=== PATIENT | male | born 1940 | race Caucasian/White ===

== ENCOUNTER 2017-04-21 20:35 | Observation (INO) | payer MEDICARE, OTHER ==
[2017-04-21] MEDS ORDERED: Albuterol/Ipratropium 3.0-0.5 MG/3 ML Neb Soln NEB STA (20:54)
[2017-04-21] MEDS ORDERED: methylPREDNISolone Sodium Succinate 125 MG/2 ML SDV IVPUSH STA (20:54)
--- NOTE | 2017-04-21 21:21 | EDM.PDOC ---
ED HPI GENERAL MEDICAL PROBLEM - General Chief Complaint: Respiratory Problem Stated Complaint: SHORT OF BREATH Time Seen by Provider: 04/21/17 20:35 Source of Information: Reports: Patient, Family History Limitations: Reports: Altered Mental Status, Physical Impairment - History of Present Illness INITIAL COMMENTS - FREE TEXT/NARRATIVE: 76 y.o.w.m. with COPD, long time smoker, came to the ed due to worsening of SOB , poor historian PE: weak appearing 76 y.o.w.m with SOB Imaging: CHF, COPD pneumonia Labs: Impression: CHF. Pneumonia, COPD exacerbation Onset: Unknown/Unsure Onset Date: 04/18/17 Onset Time: 05:00 Duration: Day(s):, Week(s):, Getting Worse, Intermittent Location: Reports: Chest Quality: Reports: Same as Previous Episode Severity: Moderate Improves with: Reports: Cold Therapy, Medication Context: Reports: Activity, Exercise Associated Symptoms: Reports: Shortness of Breath, Weakness - Related Data Allergies Allergy/AdvReac Type Severity Reaction Status Date / Time morphine Allergy Hallucinati Verified 04/21/17 20:52 ons Home Meds: Home Meds Acetaminophen/Diphenhydramine [Tylenol Pm Ex-Strength Caplet] 1 tab PO BEDTIME 04/22/17 [History] Albuterol/Ipratropium [Take Home: Albuterol/Ipratropium, 4 Neb Pack] 1 dose NEB Q6H PRN 04/22/17 [History] Amitriptyline [Elavil] 25 mg PO BEDTIME 04/22/17 [History] Aspirin [Halfprin] 81 mg PO DAILY 04/22/17 [History] Cholecalciferol (Vitamin D3) [Vitamin D3] 2,000 unit PO DAILY 04/22/17 [History] Cyanocobalamin (Vitamin B-12) [Vitamin B-12] 1,000 mcg PO DAILY 04/22/17 [ History] Diclofenac Sodium [Diclofenac Sodium] 75 mg PO BID 04/22/17 [History] Latanoprost [Latanoprost] 1 drop EYEBOTH BEDTIME 04/22/17 [History] Levothyroxine [Synthroid] 50 mcg PO DAILY 04/22/17 [History] Multivitamin with Minerals [Multivitamins with Minerals] 1 tab PO DAILY [History] Sertraline [Zoloft] 50 mg PO DAILY 04/22/17 [History] Tamsulosin [Flomax] 0.4 mg PO DAILY 04/22/17 [History] traZODone 100 mg PO BEDTIME 04/22/17 [History] ED ROS GENERAL - Review of Systems Review Of Systems: Unable To Obtain ED EXAM, GENERAL - Physical Exam Exam: See Below Exam Limited By: Physical Impairment General Appearance: Alert, WD/WN, Moderate Distress Eye Exam: Bilateral Eye: Normal Inspection Ears: Normal External Exam Ear Exam: Bilateral Ear: Auricle Normal Nose: Normal Inspection, Normal Mucosa Throat/Mouth: Normal Inspection, Normal Lips Head: Atraumatic, Normocephalic Neck: Normal Inspection, Supple, Non-Tender Respiratory/Chest: Respiratory Distress, Decreased Breath Sounds, Prolonged Expiration Cardiovascular: Normal Peripheral Pulses, Bradycardia Peripheral Pulses: 1+: Femoral (L), Femoral (R) GI/Abdominal: Normal Bowel Sounds, Soft (Male) Exam: Deferred Rectal (Males) Exam: Deferred Back Exam: Normal Inspection, Full Range of Motion Extremities: Normal Inspection, Normal Range of Motion, Non-Tender Neurological: Alert, CN II-XII Intact Psychiatric: Normal Affect, Normal Mood Skin Exam: Warm, Dry, Intact, Normal Color, No Rash Lymphatic: No Adenopathy EKG INTERPRETATION EKG Date: 04/21/17 Time: 20:35 Rhythm: NSR Rate (Beats/Min): 49 [place]: Normal P-Wave: Present QRS: RBBB ST-T: Normal QT: Prolonged Comparison: NA - No Prior EKG Course - Vital Signs Text/Narrative:: 76 y.o.w.m. with COPD, long time smoker, came to the ed due to sob PE: weak appearaing 76 y.o.w.m Labs: WBC nl, HGB 9.9 Cr. 3.3 BNP 1450 INT 1.2 Imaging: CXR: Pneumonia, CHF and COPD Impression: CHF, COPD and Pneumonia Tx: Lasix, Duoneb, Solumedrol, duoneb Reexam: Improved Plan: admit to the [facility] Last Recorded V/S: Last Vital Signs Temp 36.6 C 04/22/17 23:46 Pulse 48 L 04/22/17 23:46 Resp 20 04/22/17 23:46 BP 120/50 L 04/22/17 23:46 Pulse Ox 95 04/22/17 23:46 - Orders/Labs/Meds Orders: Medication Orders Acetaminophen/Diphenhydramine HCl (Tylenol Pm Extra Strength) 1 tab PO BEDTIME [facility] Last Admin: 04/22/17 20:51 Dose: 1 tab Albuterol (Proventil Neb Soln) 2.5 mg NEB Q4H PRN PRN Reason: Shortness Of Breath/wheezing Last Admin: 04/22/17 14:34 Dose: 2.5 mg Admin: 04/22/17 04:44 Dose: 2.5 mg Aspirin (Halfprin) 81 mg PO DAILY [facility] Last Admin: 04/22/17 12:20 Dose: 81 mg Cyanocobalamin (Vitamin B12) 1,000 mcg PO DAILY [facility] Last Admin: 04/22/17 12:22 Dose: 1,000 mcg Azithromycin 500 mg/ Sodium (Chloride) 250 mls @ 250 mls/hr IV Q24H [facility] Last Admin: 04/22/17 12:02 Dose: 250 mls/hr Ceftriaxone Sodium 1,000 mg/ (Sodium Chloride) 50 mls @ 100 mls/hr IV Q24H [facility] Last Admin: 04/22/17 13:13 Dose: 100 mls/hr Levothyroxine Sodium (Synthroid) 50 mcg PO DAILY@0600 [facility] Last Admin: 04/22/17 12:21 Dose: 50 mcg Methylprednisolone Sodium Succinate (Solu-Medrol) 125 mg IVPUSH Q8H [facility] Last Admin: 04/22/17 20:50 Dose: 125 mg Admin: 04/22/17 13:09 Dose: 125 mg Admin: 04/22/17 04:44 Dose: 125 mg Multivitamins/Minerals (Vitamins And Minerals) 1 tab PO DAILY [facility] Last Admin: 04/22/17 12:19 Dose: 1 tab Cholecalciferol ( Vitamin D3) [Vitamin D3] 2,000 Unit * Ptom 2,000 unit PO DAILY [facility] Last Admin: 04/22/17 12:20 Dose: 2,000 unit Sertraline HCl (Zoloft) 50 mg PO DAILY [facility] Last Admin: 04/22/17 12:22 Dose: 50 mg Sodium Chloride (Saline Flush) 10 ml FLUSH ASDIRECTED PRN PRN Reason: Keep Vein Open Last Admin: 04/22/17 05:01 Dose: 10 ml Tamsulosin HCl (Flomax) 0.4 mg PO DAILY [facility] Last Admin: 04/22/17 12:20 Dose: 0.4 mg Trazodone HCl (Trazodone) 100 mg PO BEDTIME [facility] Last Admin: 04/22/17 20:50 Dose: 100 mg Labs: Laboratory Tests 04/21/17 04/21/17 04/21/17 Range/Units 20:50 20:50 20:50 WBC 6.8 (4.5-12.0) X10-3/uL RBC 2.63 L (4.30-5.75) x10(6)uL Hgb 9.9 L (11.5-15.5) g/dL Hct 29.4 L (30.0-51.3) % MCV 112.0 H (80-96) fL MCH 37.6 H (27.7-33.6) pg MCHC 33.5 (32.2-35.4) g/dL RDW 17.1 H (11.5-15.5) % Plt Count 182 (125-369) X10(3)uL MPV 8.4 (7.4-10.4) fL Neut % (Auto) 63.7 (46-82) % Lymph % (Auto) 26.5 (13-37) % [place] % (Auto) 9.0 (4-12) % Eos % (Auto) 0 L (1.0-5.0) % Baso % (Auto) 1 (0-2) % Neut # (Auto) 4.4 (1.6-8.3) # Lymph # (Auto) 1.8 (0.6-5.0) # [place] # (Auto) 0.6 (0.0-1.3) # Eos # (Auto) 0.0 (0.0-0.8) # Baso # (Auto) 0.0 (0.0-0.2) # PT 12.1 H (8.7-11.1) INR 1.20 H (0.89-1.13) ABG pH (7.35-7.45) ABG pCO2 (35-45) mmHg ABG pO2 (83-108) mmHg ABG HCO3 (22-26) mmol/L ABG O2 Saturation (96-97) % ABG Base Excess (-2-2) Srikanth Test O2 Delivery Device Sodium 135 (135-145) mmol/L Potassium 4.9 (3.5-5.3) mmol/L Chloride 109 (100-110) mmol/L Carbon Dioxide 16 L (23-29) mmol/L BUN 42 H D (8-23) mg/dL Creatinine 3.3 H* (0.6-1.3) mg/dL Est Cr Clr Drug Dosing 17.25 mL/min Estimated GFR (MDRD) 18 L (>60) BUN/Creatinine Ratio 12.7 (9-20) Glucose 129 H (80-116) mg/dL Calcium 8.2 L (8.6-10.2) mg/dL Troponin I (0.02-0.06) NG/ML B-Natriuretic Peptide (0-100) pg/mL 04/21/17 04/21/17 04/21/17 Range/Units 20:50 20:50 22:00 WBC (4.5-12.0) X10-3/uL RBC (4.30-5.75) x10(6)uL Hgb (11.5-15.5) g/dL Hct (30.0-51.3) % MCV (80-96) fL MCH (27.7-33.6) pg MCHC (32.2-35.4) g/dL RDW (11.5-15.5) % Plt Count (125-369) X10(3)uL MPV (7.4-10.4) fL Neut % (Auto) (46-82) % Lymph % (Auto) (13-37) % [place] % (Auto) (4-12) % Eos % (Auto) (1.0-5.0) % Baso % (Auto) (0-2) % Neut # (Auto) (1.6-8.3) # Lymph # (Auto) (0.6-5.0) # [place] # (Auto) (0.0-1.3) # Eos # (Auto) (0.0-0.8) # Baso # (Auto) (0.0-0.2) # PT (8.7-11.1) INR (0.89-1.13) ABG pH 7.38 (7.35-7.45) ABG pCO2 26 L (35-45) mmHg ABG pO2 56 L (83-108) mmHg ABG HCO3 15 L (22-26) mmol/L ABG O2 Saturation 85 L (96-97) % ABG Base Excess -8.4 L (-2-2) Srikanth Test Per O2 Delivery Device Room air Sodium (135-145) mmol/L Potassium (3.5-5.3) mmol/L Chloride (100-110) mmol/L Carbon Dioxide (23-29) mmol/L BUN (8-23) mg/dL Creatinine (0.6-1.3) mg/dL Est Cr Clr Drug Dosing mL/min Estimated GFR (MDRD) (>60) BUN/Creatinine Ratio (9-20) Glucose (80-116) mg/dL Calcium (8.6-10.2) mg/dL Troponin I 0.08 H (0.02-0.06) NG/ML B-Natriuretic Peptide 1450 H* (0-100) pg/mL Meds: Medications Generic Name Dose Route Start Last Admin Trade Name Freq PRN Reason Stop Dose Admin Acetaminophen/Diphenhydramine HCl 1 tab 04/22/17 21:00 04/22/17 20:51 Tylenol Pm Extra Strength PO 1 tab BEDTIME [facility] Administration Albuterol 2.5 mg 04/21/17 22:30 04/22/17 14:34 Proventil Neb Soln NEB 2.5 mg Q4H PRN Administration Shortness Of Breath/wheezing Aspirin 81 mg 04/22/17 11:30 04/22/17 12:20 Halfprin PO 81 mg DAILY [facility] Administration Cyanocobalamin 1,000 mcg 04/22/17 11:30 04/22/17 12:22 Vitamin B12 PO 1,000 mcg DAILY [facility] Administration Azithromycin 500 mg/ Sodium 250 mls @ 250 mls/hr 04/22/17 11:00 04/22/17 12: 02 Chloride IV 250 mls/hr Q24H [facility] Administration Ceftriaxone Sodium 1,000 mg/ 50 mls @ 100 mls/hr 04/22/17 12:00 04/22/17 13: 13 Sodium Chloride IV 100 mls/hr Q24H [facility] Administration Levothyroxine Sodium 50 mcg 04/22/17 11:30 04/22/17 12:21 Synthroid PO 50 mcg DAILY@0600 [facility] Administration Methylprednisolone Sodium Succinate 125 mg 04/22/17 05:00 04/22/17 20:50 Solu-Medrol IVPUSH 125 mg Q8H [facility] Administration Multivitamins/Minerals 1 tab 04/22/17 11:15 04/22/17 12:19 Vitamins And Minerals PO 1 tab DAILY [facility] Administration Cholecalciferol ( 2,000 unit 04/22/17 11:30 04/22/17 12:20 Vitamin D3) [Vitamin PO 2,000 unit D3] 2,000 Unit * DAILY [facility] Administration Ptom Sertraline HCl 50 mg 04/22/17 11:30 04/22/17 12:22 Zoloft PO 50 mg DAILY [facility] Administration Sodium Chloride 10 ml 04/22/17 04:40 04/22/17 05:01 Saline Flush FLUSH 10 ml ASDIRECTED PRN Administration Keep Vein Open Tamsulosin HCl 0.4 mg 04/22/17 11:30 04/22/17 12:20 Flomax PO 0.4 mg DAILY [facility] Administration Trazodone HCl 100 mg 04/22/17 21:00 04/22/17 20:50 Trazodone PO 100 mg BEDTIME [facility] Administration Discontinued Medications Generic Name Dose Route Start Last Admin Trade Name Freq PRN Reason Stop Dose Admin Albuterol/Ipratropium 3 ml 04/21/17 20:54 04/21/17 21:32 Duoneb 3.0-0.5 Mg/3 Ml NEB 04/21/17 20:55 3 ml ONETIME STA Administration Methylprednisolone Sodium Succinate 125 mg 04/21/17 20:54 04/21/17 21:41 Solu-Medrol IVPUSH 04/21/17 20:55 125 mg ONETIME STA Administration Methylprednisolone Sodium Succinate 125 mg 04/21/17 22:45 04/22/17 01:09 Solu-Medrol IVPUSH Not Given Q8H [facility] Departure - Departure Time of Disposition: 05:00 Disposition: Refer to Observation Condition: Fair, Poor Clinical Impression: COPD (chronic obstructive pulmonary disease) Qualifiers: COPD type: COPD with acute exacerbation Qualified Code(s): J44.1 - Chronic obstructive pulmonary disease with (acute) exacerbation - Discharge Information
[2017-04-21] MEDS ORDERED: methylPREDNISolone Sodium Succinate 125 MG/2 ML SDV IVPUSH SCH (22:45)
[2017-04-22] MEDS: methylPREDNISolone Sodium Succinate 125 MG/2 ML SDV IVPUSH SCH ×3 (04:44→20:50)
[2017-04-22] MEDS: Albuterol 0.083% 2.5 MG/3 ML Neb Soln NEB PRN ×2 (04:44→14:34)
[2017-04-22] MEDS: Sodium Chloride 0.9% 10 ML Syringe FLUSH PRN (05:01)
--- NOTE | 2017-04-22 10:35 | CR ---
INDICATION: Short of breath. CHEST: AP and lateral views of the chest 04/21/2017 were compared with 2010 and 08/21/2011, revealing the heart to be enlarged in general with post median sternotomy change. A central line is noted in satisfactory position, essentially unchanged from previous studies. Findings remain compatible with COPD, DISH with flowing hyperostotic changes in the thoracic spine, and demineralization suggesting osteoporosis. Heavy markings are noted posteriorly at the lung bases, but especially on the left, making it difficult to exclude patchy pneumonia in those areas, but especially at the left lung base and costophrenic angle. No gross consolidating pneumonia or significant sized effusion could be identified. IMPRESSION: 1. Cannot exclude patchy pneumonia at the left lung base and perhaps very minimally at the right lung base. 2. ASHD with post surgical change - median sternotomy. 3. COPD. 4. Probable DISH. 5. Dextroconvex scoliosis lower thoracic spine and possible osteoporosis. MTDD
--- NOTE | 2017-04-22 10:48 | PCM.HP ---
H&P History of Present Illness - General Date of Service: 04/22/17 Admit Problem/Dx: Admission Diagnosis/Problem Admission Diagnosis/Problem COPD, Moderate chronic obstructive pulmonary disease Source of Information: Patient, EMS Notes Reviewed, Family, Old Records - History of Present Illness Initial Comments - Free Text/Narative: 76-year-old male who came in because of shortness of breath. He is a poor historian,so I obtained this history from old records from [facility], as well as from the family members. Apparently he's had problems with SOB for a long time: He has a history of COPD. The Last 1-2 days,however, he had episodes of difficulty breathing, wheezing ,but with no chest pain, fever or chills.He has a history of coronary artery disease without angina, stable hypertension, and chronic kidney disease that is stable. He's had problems with sleep at night and was recently started on trazodone. He is a previous smoker of more than 30 years and quit several years ago. He has also had a history of myasthenia gravis but with no episodes since 2000. He is a remote history of convulsions last episodes being 1978. - Related Data Allergies/Adverse Reactions: Allergies Allergy/AdvReac Type Severity Reaction Status Date / Time morphine Allergy Hallucinati Verified 04/21/17 20:52 ons Home Medications: Home Meds Acetaminophen/Diphenhydramine [Tylenol Pm Ex-Strength Caplet] 1 tab PO BEDTIME 04/22/17 [History] Aspirin [Halfprin] 81 mg PO DAILY 04/22/17 [History] Cholecalciferol (Vitamin D3) [Vitamin D3] 2,000 unit PO DAILY 04/22/17 [History] Cyanocobalamin (Vitamin B-12) [Vitamin B-12] 1,000 mcg PO DAILY 04/22/17 [ History] Levothyroxine [Synthroid] 50 mcg PO DAILY 04/22/17 [History] Multivitamin with Minerals [Multivitamins with Minerals] 1 tab PO DAILY [History] Sertraline [Zoloft] 50 mg PO DAILY 04/22/17 [History] Tamsulosin [Flomax] 0.4 mg PO DAILY 04/22/17 [History] traZODone 100 mg PO BEDTIME 04/22/17 [History] Past Medical History HEENT History: Reports: Hard of Hearing Cardiovascular History: Reports: Arrhythmia, Bypass, Heart Failure, SOB on Exertion, Other (See Below) Other Cardiovascular History: sinus bradycardia Respiratory History: Reports: COPD, SOB Gastrointestinal History: Reports: Bowel Obstruction, Other (See Below) Other Gastrointestinal History: perfoated bowel in past Genitourinary History: Reports: Renal Disease Musculoskeletal History: Reports: Other (See Below) Other Musculoskeletal History: myasthenia gravis in remission Neurological History: Reports: Other (See Below) Other Neuro History: myasthenia gravis in remission Psychiatric History: Reports: Addiction, Other (See Below) Other Psychiatric History: Hx ETOH abuse Endocrine/Metabolic History: Reports: Obesity/BMI 30+ Hematologic History: Reports: B12 Deficiency, Sickle Cell Anemia Immunologic History: Reports: Other (See Below) Other Immunologic History: on past medications Dermatologic History: Reports: Melanoma, Other (See Below) Other Dermatologic History: noted dark patchy area to right frontal lobe approx 6cm size-without pain - Infectious Disease History Infectious Disease History: Reports: Chicken Pox, Mumps, Shingles - Past Surgical History Cardiovascular Surgical History: Reports: Coronary Artery Bypass GI Surgical History: Reports: Appendectomy, Colonoscopy, Other (See Below) Other GI Surgeries/Procedures: perforated bowel about 17 years ago Musculoskeletal Surgical History: Reports: Other (See Below) Other Musculoskeletal Surgeries/Procedures:: generalized aching all over with flare up Dermatological Surgical History: Reports: None Social & Family History - Family History Cardiac: Reports: Bypass Respiratory: Reports: COPD Musculoskeletal: Reports: Arthritis Endocrine/Metabolic: Reports: Diabetes, Type I Hematologic: Reports: B12 Deficiency, Sickle Cell Anemia - Tobacco Use Smoking Status *Q: Former Smoker Years of Tobacco use: 25 Used Tobacco, but Quit: Yes Month Tobacco Last Used: 25 years ago Second Hand Smoke Exposure: No - Caffeine Use Caffeine Use: Reports: Coffee - Alcohol Use Date of Last Drink: 12/07/67 - Recreational Drug Use Recreational Drug Use: No H&P Review of Systems - Review of Systems: Review Of Systems: ROS reveals no pertinent complaints other than HPI. Exam - Exam Exam: See Below - Vital Signs Vital Signs: Last Vital Signs Temp 97.9 F 04/22/17 08:00 Pulse 45 L 04/22/17 08:00 Resp 15 04/22/17 08:00 BP 102/41 L 04/22/17 08:00 Pulse Ox 97 04/22/17 08:00 Weight: 101.775 kg - Exam General: Lethargic. No: Cooperative HEENT: PERRLA, Hearing Intact, Mucosa Moist & [place], Nares Patent, Normal Nasal Septum, Posterior Pharynx Clear, Conjunctiva Clear, EOMI, EACs Clear, TMs Clear Neck: Supple, Trachea Midline, 2 Lungs: Rales Cardiovascular: Regular Rate, Regular Rhythm Abdomen: Normal Bowel Sounds, Soft (Male) Exam: Deferred Rectal (Males) Exam: Deferred Back Exam: Normal Inspection, Full Range of Motion, NT Extremities: 3, Normal Inspection, 10 Skin: Warm, Dry, Intact Neurological: Cranial Nerves Intact, Reflexes Equal Bilateral Neuro Extensive - Mental Status: Alert, Oriented x3, Normal Mood/Affect, Normal Cognition Neuro Extensive - Motor, Sensory, Reflexes: CN II-XII Intact, Normal Gait, Normal Reflexes Psychiatric: Alert, Normal Affect, Normal Mood - Patient Data Result Diagrams: 04/21/17 20:50 04/21/17 20:50 Imaging Impressions Last 24 hrs: CXR-pulmonary fibrosis/pneumonia EKG INTERPRETATION Rhythm: NSR *Q Meaningful Use (ADM) - VTE *Q VTE Criteria *Q: - Stroke *Q Stroke Criteria *Q: - AMI *Q AMI Criteria *Q: - Problem List (1) CAP (community acquired pneumonia) SNOMED Code(s): 301399909 ICD Code: J18.9 - PNEUMONIA, UNSPECIFIED ORGANISM Status: Acute Current Visit: Yes (2) COPD (chronic obstructive pulmonary disease) SNOMED Code(s): 53706272 ICD Code: J44.9 - CHRONIC OBSTRUCTIVE PULMONARY DISEASE, UNSPECIFIED Status : Acute Current Visit: Yes Qualifiers: COPD type: COPD with acute exacerbation Qualified Code(s): J44.1 - Chronic obstructive pulmonary disease with (acute) exacerbation (3) CKD (chronic kidney disease) SNOMED Code(s): 600067432 ICD Code: N18.9 - CHRONIC KIDNEY DISEASE, UNSPECIFIED Status: Acute Current Visit: Yes Qualifiers: Chronic kidney disease stage: stage 4 (severe) Qualified Code(s): N18.4 - Chronic kidney disease, stage 4 (severe) (4) Anemia SNOMED Code(s): 662095827 ICD Code: D64.9 - ANEMIA, UNSPECIFIED Status: Acute Current Visit: Yes Qualifiers: Anemia type: B12 deficiency (5) CAD (coronary artery disease) SNOMED Code(s): 27708725 ICD Code: I25.10 - ATHSCL HEART DISEASE OF [place] CORONARY ARTERY W/O ANG PCTRS Status: Acute Current Visit: Yes Qualifiers: Coronary Disease-Associated Artery/Lesion type: jena artery Associated angina: without angina (6) CHF (congestive heart failure) SNOMED Code(s): 20356249 ICD Code: I50.9 - HEART FAILURE, UNSPECIFIED Status: Acute Current Visit : Yes Qualifiers: Congestive heart failure type: unspecified congestive heart failure type Congestive heart failure chronicity: unspecified congestive heart failure chronicity Qualified Code(s): I50.9 - Heart failure, unspecified (7) Hypothyroid SNOMED Code(s): 45784368 ICD Code: E03.9 - HYPOTHYROIDISM, UNSPECIFIED Status: Chronic Current Visit: Yes Qualifiers: Hypothyroidism type: unspecified Qualified Code(s): E03.9 - Hypothyroidism , unspecified (8) Myasthenia gravis SNOMED Code(s): 62890487 ICD Code: G70.00 - MYASTHENIA GRAVIS WITHOUT (ACUTE) EXACERBATION Status: Chronic Current Visit: No (9) HTN (hypertension) SNOMED Code(s): 46219483 ICD Code: I10 - ESSENTIAL (PRIMARY) HYPERTENSION Status: Chronic Current Visit: Yes Qualifiers: Hypertension type: essential hypertension Qualified Code(s): I10 - Essential (primary) hypertension (10) Hearing loss SNOMED Code(s): 06199893 ICD Code: H91.90 - UNSPECIFIED HEARING LOSS, UNSPECIFIED EAR Status: Acute Current Visit: Yes Qualifiers: Hearing loss type: sensorineural (11) Hyperparathyroidism SNOMED Code(s): 90336243 ICD Code: E21.3 - HYPERPARATHYROIDISM, UNSPECIFIED Status: Chronic Current Visit: Yes (12) Hyperlipemia SNOMED Code(s): 98354591 ICD Code: E78.5 - HYPERLIPIDEMIA, UNSPECIFIED Status: Chronic Current Visit: Yes Qualifiers: Hyperlipidemia type: mixed hyperlipidemia Qualified Code(s): E78.2 - Mixed hyperlipidemia (13) MDD (major depressive disorder) SNOMED Code(s): 497642628 ICD Code: F32.9 - MAJOR DEPRESSIVE DISORDER, SINGLE EPISODE, UNSPECIFIED Status: Chronic Current Visit: Yes Qualifiers: Major depression recurrence: recurrent Active/Remission status: remission status unspecified Qualified Code(s): F33.9 - Major depressive disorder, recurrent, unspecified (14) Insomnia SNOMED Code(s): 420638131 ICD Code: G47.00 - INSOMNIA, UNSPECIFIED Status: Acute Current Visit: Yes Qualifiers: Insomnia type: primary Qualified Code(s): F51.01 - Primary insomnia (15) Vitamin D deficiency SNOMED Code(s): 65931511 ICD Code: E55.9 - VITAMIN D DEFICIENCY, UNSPECIFIED Status: Chronic Current Visit: Yes Problem List Initiated/Reviewed/Updated: Yes Orders Last 24hrs: Active Orders 24 hr Category Date Time Status Patient Status [ADT] Routine ADT 04/21/17 22:30 Active Oxygen Therapy [RC] PRN Care 04/21/17 22:30 Active Supplemental O2 [Oxygen Therapy, ED] [RC] ASDIRECTED Care 04/21/17 22:29 Active Up With Assistance [RC] ASDIRECTED Care 04/21/17 22:30 Active VTE/DVT Education [RC] Per Unit Routine Care 04/21/17 22:30 Active Vital Signs [RC] Q4H Care 04/21/17 22:30 Active Albuterol [Proventil Neb Soln] Med 04/21/17 22:30 Active 2.5 mg NEB Q4H PRN Sodium Chloride 0.9% [Saline Flush] Med 04/22/17 04:40 Active 10 ml FLUSH ASDIRECTED PRN methylPREDNISolone Sod Succ [Solu-MEDROL] Med 04/22/17 05:00 Active 125 mg IVPUSH Q8H traZODone Med 04/22/17 21:00 Active 100 mg PO BEDTIME Resuscitation Status Routine Resus Stat 04/21/17 22:30 Ordered EKG 12 Lead [EK] Routine Ther 04/21/17 20:45 Ordered Medication Orders Albuterol (Proventil Neb Soln) 2.5 mg NEB Q4H PRN PRN Reason: Shortness Of Breath/wheezing Last Admin: 04/22/17 04:44 Dose: 2.5 mg Methylprednisolone Sodium Succinate (Solu-Medrol) 125 mg IVPUSH Q8H [facility] Last Admin: 04/22/17 04:44 Dose: 125 mg Sodium Chloride (Saline Flush) 10 ml FLUSH ASDIRECTED PRN PRN Reason: Keep Vein Open Last Admin: 04/22/17 05:01 Dose: 10 ml Trazodone HCl (Trazodone) 100 mg PO BEDTIME [facility] Assessment/Plan Comment:: Based on the chest x-ray findings and presentation, I will start him on treatment for pneumonia. I will continue with Solu Medrol and nebulizer therapy for albuterol. I will stop the IV fluids instead repeat a basic metabolic Panel in the morning. His home medications will be continued. Patient has expressed interest to go home but the family would like him to stay 1 more day.
[2017-04-22] MEDS: Azithromycin 500 MG in Sodium Chloride 0.9% 250 ML IV SCH (12:02)
[2017-04-22] MEDS: [UNRECOGNIZED DRUG - OTHER] PO SCH (12:19)
[2017-04-22] MEDS: Tamsulosin 0.4 MG Cap.ER *PTOM PO SCH (12:20)
[2017-04-22] MEDS: CHOLECALCIFEROL 2000 UNIT PO SCH (12:20)
[2017-04-22] MEDS: Aspirin 81 MG Tab.EC *PTOM PO SCH (12:20)
[2017-04-22] MEDS: Levothyroxine 100 MCG Tab *PTOM PO SCH (12:21)
[2017-04-22] MEDS: Sertraline 100 MG Tab *PTOM PO SCH (12:22)
[2017-04-22] MEDS: Cyanocobalamin (Vitamin B12) 1,000 MCG Tab *PTOM PO SCH (12:22)
[2017-04-22] MEDS: cefTRIAXone 1,000 MG in Sodium Chloride 0.9% 50 ML IV SCH (13:13)
[2017-04-22] MEDS ORDERED: Acetaminophen/Diphenhydramine 500-25 MG Tab PO SCH (21:00)
[2017-04-22] MEDS ORDERED: traZODone 100 MG Tab *PTOM PO SCH (21:00)
[2017-04-22] MEDS ORDERED: Non-Formulary Medication 1 Each (Trazodone [Trazodone] 100 MG) PO SCH (21:00)
[2017-04-23] MEDS: Levothyroxine 100 MCG Tab *PTOM PO SCH (05:34)
[2017-04-23] MEDS: Sodium Chloride 0.9% 10 ML Syringe FLUSH PRN (05:37)
[2017-04-23] MEDS: methylPREDNISolone Sodium Succinate 125 MG/2 ML SDV IVPUSH SCH (05:37)
[2017-04-23] MEDS ORDERED: Sodium Polystyrene Sulfonate 15 GM/60 ML Susp 60 ML Bot PO ONE (08:43)
--- NOTE | 2017-04-23 08:43 | PCM.PN ---
- General Info Date of Service: 04/23/17 Admission Dx/Problem (Free Text): This is a 76-year-old male patient here for COPD and pneumonia. He has lots of chronic medical problems. He is on Solu-Medrol, Rocephin, Zithromax. He states his breathing is doing well. He was short of breath before he came in. He denies cough. Cough before he came in. He denies orthopnea, PND, chest pain or leg swelling. He says his left knee swells at times because of arthritis. - Patient Data Vitals - most recent: Last Vital Signs Temp 97.1 F 04/23/17 04:00 Pulse 44 L 04/23/17 04:00 Resp 20 04/23/17 04:00 BP 90/41 L 04/23/17 04:00 Pulse Ox 97 04/23/17 04:00 Weight - most recent: 222 lb 11.2 oz I&O - last 24 hours: Intake & Output 04/22/17 04/23/17 04/23/17 22:59 06:59 14:59 Intake Total 200 Balance 200 Lab Results last 24 hrs: Laboratory Results - last 24 hr 04/23/17 04/23/17 04/23/17 Range/Units 06:20 06:20 06:20 WBC 10.4 (4.5-12.0) X10-3/uL RBC 2.62 L (4.30-5.75) x10(6)uL Hgb 9.8 L (11.5-15.5) g/dL Hct 29.4 L (30.0-51.3) % MCV 112.0 H (80-96) fL MCH 37.5 H (27.7-33.6) pg MCHC 33.4 (32.2-35.4) g/dL RDW 17.3 H (11.5-15.5) % Plt Count 152 (125-369) X10(3)uL MPV 9.1 (7.4-10.4) fL Add Manual Diff Yes Neutrophils % (Manual) 86 H (46-82) % Lymphocytes % (Manual) 12 L (13-37) % Monocytes % (Manual) 2 L (4-12) % Poikilocytosis Moderate H Anisocytosis Few Macrocytosis Moderate H Ovalocytes Few Ofelia Cells Few Sodium 133 L (135-145) mmol/L Potassium 5.9 H D (3.5-5.3) mmol/L Chloride 111 H (100-110) mmol/L Carbon Dioxide 13 L (23-29) mmol/L BUN 69 H D (8-23) mg/dL Creatinine 3.3 H* (0.6-1.3) mg/dL Est Cr Clr Drug Dosing 17.85 mL/min Estimated GFR (MDRD) 18 L (>60) BUN/Creatinine Ratio 20.9 H (9-20) Glucose 154 H (80-116) mg/dL Calcium 7.9 L (8.6-10.2) mg/dL B-Natriuretic Peptide 2310 H* (0-100) pg/mL Med Orders - Current: Current Medications Acetaminophen/Diphenhydramine HCl (Tylenol Pm Extra Strength) 1 tab PO BEDTIME [facility] Last Admin: 04/22/17 20:51 Dose: 1 tab Albuterol (Proventil Neb Soln) 2.5 mg NEB Q4H PRN PRN Reason: Shortness Of Breath/wheezing Last Admin: 04/22/17 14:34 Dose: 2.5 mg Aspirin (Halfprin) 81 mg PO DAILY [facility] Last Admin: 04/22/17 12:20 Dose: 81 mg Cyanocobalamin (Vitamin B12) 1,000 mcg PO DAILY [facility] Last Admin: 04/22/17 12:22 Dose: 1,000 mcg Azithromycin 500 mg/ Sodium (Chloride) 250 mls @ 250 mls/hr IV Q24H [facility] Last Admin: 04/22/17 12:02 Dose: 250 mls/hr Ceftriaxone Sodium 1,000 mg/ (Sodium Chloride) 50 mls @ 100 mls/hr IV Q24H [facility] Last Admin: 04/22/17 13:13 Dose: 100 mls/hr Levothyroxine Sodium (Synthroid) 50 mcg PO DAILY@0600 [facility] Last Admin: 04/23/17 05:34 Dose: 50 mcg Methylprednisolone Sodium Succinate (Solu-Medrol) 125 mg IVPUSH Q8H [facility] Last Admin: 04/23/17 05:37 Dose: 125 mg Multivitamins/Minerals (Vitamins And Minerals) 1 tab PO DAILY [facility] Last Admin: 04/22/17 12:19 Dose: 1 tab Cholecalciferol ( Vitamin D3) [Vitamin D3] 2,000 Unit * Ptom 2,000 unit PO DAILY [facility] Last Admin: 04/22/17 12:20 Dose: 2,000 unit Sertraline HCl (Zoloft) 50 mg PO DAILY [facility] Last Admin: 04/22/17 12:22 Dose: 50 mg Sodium Chloride (Saline Flush) 10 ml FLUSH ASDIRECTED PRN PRN Reason: Keep Vein Open Last Admin: 04/23/17 05:37 Dose: 10 ml Tamsulosin HCl (Flomax) 0.4 mg PO DAILY [facility] Last Admin: 04/22/17 12:20 Dose: 0.4 mg Trazodone HCl (Trazodone) 100 mg PO BEDTIME [facility] Last Admin: 04/22/17 20:50 Dose: 100 mg Discontinued Medications Albuterol/Ipratropium (Duoneb 3.0-0.5 Mg/3 Ml) 3 ml NEB ONETIME STA Stop: 04/21/17 20:55 Last Admin: 04/21/17 21:32 Dose: 3 ml Methylprednisolone Sodium Succinate (Solu-Medrol) 125 mg IVPUSH ONETIME STA Stop: 04/21/17 20:55 Last Admin: 04/21/17 21:41 Dose: 125 mg Methylprednisolone Sodium Succinate (Solu-Medrol) 125 mg IVPUSH Q8H [facility] Last Admin: 04/22/17 01:09 Dose: Not Given - Exam General: alert, oriented, cooperative Neck: supple Lungs: Clear to auscultation, Normal respiratory effort, Decreased breath sounds. No: Crackles, Rales, Rhonchi Cardiovascular: Regular Rate, Regular Rhythm, No Murmurs Extremities: no edema - Problem List & Annotations (1) Pneumonia SNOMED Code(s): 143270165 Code(s): J18.9 - PNEUMONIA, UNSPECIFIED ORGANISM Status: Acute Current Visit: Yes (2) Hyperkalemia SNOMED Code(s): 31192362 Code(s): E87.5 - HYPERKALEMIA Status: Acute Current Visit: Yes (3) Anemia SNOMED Code(s): 057603334 Code(s): D64.9 - ANEMIA, UNSPECIFIED Status: Acute Current Visit: Yes Qualifiers: Anemia type: B12 deficiency (4) CKD (chronic kidney disease) SNOMED Code(s): 750677606 Code(s): N18.9 - CHRONIC KIDNEY DISEASE, UNSPECIFIED Status: Acute Current Visit: Yes Qualifiers: Chronic kidney disease stage: stage 4 (severe) Qualified Code(s): N18.4 - Chronic kidney disease, stage 4 (severe) (5) COPD (chronic obstructive pulmonary disease) SNOMED Code(s): 66711478 Code(s): J44.9 - CHRONIC OBSTRUCTIVE PULMONARY DISEASE, UNSPECIFIED Status : Acute Current Visit: Yes Qualifiers: COPD type: COPD with acute exacerbation Qualified Code(s): J44.1 - Chronic obstructive pulmonary disease with (acute) exacerbation - Problem List Review Problem List Initiated/Reviewed/Updated: Yes - Plan Plan:: The patient's BNP is increased. But I do not see signs based on physical exam or history of CHF. Patient's potassium is up a little bit and his creatinine is up from his norm which is about 2.37 last time in clinic. Patient insists on going home daily. I told him his potassium was elevated and he probably would end up back here. He states he does not care he is going to go home. He is willing to accept home health. I will give Kayexalate so he does not rebound over the weekend and then have him be seen in the clinic early in the week with a potassium. He will go home on prednisone, Augmentin, Zithromax and home health.
--- NOTE | 2017-04-23 09:08 | PCM.DCSUM1 ---
Discharge Summary - Hospital Course Free Text/Narrative:: Hospital course-patient was admitted place of [facility] 125 3 times a day IV with Rocephin and Zithromax. X-ray was read as probable pneumonia. BMP was elevated and increased but he had no physical signs or subjective signs of CHF while he was here. His creatinine was 3.3 which is elevated and his potassium on day 3 when up to just over 5.5. The patient insisted on going home. Discussed that he should stay. He insisted he was going home, so I've given some Kayexalate 15 mg suppository today and will send him home on prednisone, Zithromax, Augmentin. He was anemic while he was here. Hemoglobin about the same as in the clinic. He'll go home on home health. I'll have him see his primary provider in 3-4 days with a BMP. Brief History: 76-year-old male who came in because of shortness of breath. He is a poor historian,so I obtained this history from old records from [facility], as well as from the family members. Apparently he's had problems with SOB for a long time:He has a history of COPD. The Last 1-2 days,however, he had episodes of difficulty breathing, wheezing ,but with no chest pain, fever or chills.He has a history of coronary artery disease without angina, stable hypertension, and chronic kidney disease that is stable. He's had problems with sleep at night and was recently started on trazodone. He is a previous smoker of more than 30 years and quit several years ago. He has also had a history of myasthenia gravis but with no episodes since 2000. He is a remote history of convulsions last episodes being 1978. - Discharge Data Discharge Date: 04/23/17 Discharge Disposition: Home, W Home Health Agency 06 Condition: Good - Discharge Diagnosis/Problem(s) (1) Pneumonia SNOMED Code(s): 923623645 ICD Code: J18.9 - PNEUMONIA, UNSPECIFIED ORGANISM Status: Acute Current Visit: Yes (2) Hyperkalemia SNOMED Code(s): 05774355 ICD Code: E87.5 - HYPERKALEMIA Status: Acute Current Visit: Yes (3) Anemia SNOMED Code(s): 465133318 ICD Code: D64.9 - ANEMIA, UNSPECIFIED Status: Acute Current Visit: Yes Qualifiers: Anemia type: B12 deficiency (4) CKD (chronic kidney disease) SNOMED Code(s): 614785790 ICD Code: N18.9 - CHRONIC KIDNEY DISEASE, UNSPECIFIED Status: Acute Current Visit: Yes Qualifiers: Chronic kidney disease stage: stage 4 (severe) Qualified Code(s): N18.4 - Chronic kidney disease, stage 4 (severe) (5) COPD (chronic obstructive pulmonary disease) SNOMED Code(s): 14362492 ICD Code: J44.9 - CHRONIC OBSTRUCTIVE PULMONARY DISEASE, UNSPECIFIED Status : Acute Current Visit: Yes Qualifiers: COPD type: COPD with acute exacerbation Qualified Code(s): J44.1 - Chronic obstructive pulmonary disease with (acute) exacerbation - Patient Instructions Diet: Diabetic Diet Activity: As Tolerated Driving: Do Not Drive Showering/Bathing: May Shower Other/Special Instructions: 1. Recheck with Mae Waldron 3-4 days with a BMP. 2. Home health in regards to COPD, pneumonia, hyperkalemia, med teaching, surveillance, home safety - Discharge Plan Prescriptions/Med Rec: Amoxicillin/Clavulanate K [Augmentin 500 MG\125 MG] 1 tab PO TID #30 tab Azithromycin [Zithromax] 250 mg PO DAILY #4 tablet predniSONE [Prednisone] 10 mg PO DAILY #48 tab.ds.pk Home Medications: Home Meds Acetaminophen/Diphenhydramine [Tylenol Pm Ex-Strength Caplet] 1 tab PO BEDTIME 04/22/17 [History] Albuterol/Ipratropium [Take Home: Albuterol/Ipratropium, 4 Neb Pack] 1 dose NEB Q6H PRN 04/22/17 [History] Amitriptyline [Elavil] 25 mg PO BEDTIME 04/22/17 [History] Aspirin [Halfprin] 81 mg PO DAILY 04/22/17 [History] Cholecalciferol (Vitamin D3) [Vitamin D3] 2,000 unit PO DAILY 04/22/17 [History] Cyanocobalamin (Vitamin B-12) [Vitamin B-12] 1,000 mcg PO DAILY 04/22/17 [ History] Latanoprost 1 drop EYEBOTH BEDTIME 04/22/17 [History] Levothyroxine [Synthroid] 50 mcg PO DAILY 04/22/17 [History] Multivitamin with Minerals [Multivitamins with Minerals] 1 tab PO DAILY [History] Sertraline [Zoloft] 50 mg PO DAILY 04/22/17 [History] Tamsulosin [Flomax] 0.4 mg PO DAILY 04/22/17 [History] traZODone 100 mg PO BEDTIME 04/22/17 [History] Amoxicillin/Clavulanate K [Augmentin 500 MG\125 MG] 1 tab PO TID #30 tab [Rx] Azithromycin [Zithromax] 250 mg PO DAILY #4 tablet 04/23/17 [Rx] predniSONE [Prednisone] 10 mg PO DAILY #48 tab.ds.pk 04/23/17 [Rx] Forms: ED Department Discharge Referrals: Marely Waldron, [employer] [Primary Care Provider] - - Discharge Summary/Plan Comment DC Time >30 min.: No - Patient Data Vitals - Most Recent: Last Vital Signs Temp 97.1 F 04/23/17 04:00 Pulse 44 L 04/23/17 04:00 Resp 20 04/23/17 04:00 BP 90/41 L 04/23/17 04:00 Pulse Ox 97 04/23/17 04:00 Weight - Most Recent: 222 lb 11.2 oz I&O - Last 24 hours: Intake & Output 04/22/17 04/23/17 04/23/17 22:59 06:59 14:59 Intake Total 200 Balance 200 Lab Results - Last 24 hrs: Laboratory Results - last 24 hr 04/23/17 04/23/17 04/23/17 Range/Units 06:20 06:20 06:20 WBC 10.4 (4.5-12.0) X10-3/uL RBC 2.62 L (4.30-5.75) x10(6)uL Hgb 9.8 L (11.5-15.5) g/dL Hct 29.4 L (30.0-51.3) % MCV 112.0 H (80-96) fL MCH 37.5 H (27.7-33.6) pg MCHC 33.4 (32.2-35.4) g/dL RDW 17.3 H (11.5-15.5) % Plt Count 152 (125-369) X10(3)uL MPV 9.1 (7.4-10.4) fL Add Manual Diff Yes Neutrophils % (Manual) 86 H (46-82) % Lymphocytes % (Manual) 12 L (13-37) % Monocytes % (Manual) 2 L (4-12) % Poikilocytosis Moderate H Anisocytosis Few Macrocytosis Moderate H Ovalocytes Few Ofelia Cells Few Sodium 133 L (135-145) mmol/L Potassium 5.9 H D (3.5-5.3) mmol/L Chloride 111 H (100-110) mmol/L Carbon Dioxide 13 L (23-29) mmol/L BUN 69 H D (8-23) mg/dL Creatinine 3.3 H* (0.6-1.3) mg/dL Est Cr Clr Drug Dosing 17.85 mL/min Estimated GFR (MDRD) 18 L (>60) BUN/Creatinine Ratio 20.9 H (9-20) Glucose 154 H (80-116) mg/dL Calcium 7.9 L (8.6-10.2) mg/dL B-Natriuretic Peptide 2310 H* (0-100) pg/mL Med Orders - Current: Current Medications Acetaminophen/Diphenhydramine HCl (Tylenol Pm Extra Strength) 1 tab PO BEDTIME [facility] Last Admin: 04/22/17 20:51 Dose: 1 tab Albuterol (Proventil Neb Soln) 2.5 mg NEB Q4H PRN PRN Reason: Shortness Of Breath/wheezing Last Admin: 04/22/17 14:34 Dose: 2.5 mg Aspirin (Halfprin) 81 mg PO DAILY [facility] Last Admin: 04/22/17 12:20 Dose: 81 mg Cyanocobalamin (Vitamin B12) 1,000 mcg PO DAILY [facility] Last Admin: 04/22/17 12:22 Dose: 1,000 mcg Azithromycin 500 mg/ Sodium (Chloride) 250 mls @ 250 mls/hr IV Q24H [facility] Last Admin: 04/22/17 12:02 Dose: 250 mls/hr Ceftriaxone Sodium 1,000 mg/ (Sodium Chloride) 50 mls @ 100 mls/hr IV Q24H [facility] Last Admin: 04/22/17 13:13 Dose: 100 mls/hr Levothyroxine Sodium (Synthroid) 50 mcg PO DAILY@0600 [facility] Last Admin: 04/23/17 05:34 Dose: 50 mcg Methylprednisolone Sodium Succinate (Solu-Medrol) 125 mg IVPUSH Q8H [facility] Last Admin: 04/23/17 05:37 Dose: 125 mg Multivitamins/Minerals (Vitamins And Minerals) 1 tab PO DAILY [facility] Last Admin: 04/22/17 12:19 Dose: 1 tab Cholecalciferol ( Vitamin D3) [Vitamin D3] 2,000 Unit * Ptom 2,000 unit PO DAILY [facility] Last Admin: 04/22/17 12:20 Dose: 2,000 unit Sertraline HCl (Zoloft) 50 mg PO DAILY [facility] Last Admin: 04/22/17 12:22 Dose: 50 mg Sodium Chloride (Saline Flush) 10 ml FLUSH ASDIRECTED PRN PRN Reason: Keep Vein Open Last Admin: 04/23/17 05:37 Dose: 10 ml Tamsulosin HCl (Flomax) 0.4 mg PO DAILY [facility] Last Admin: 04/22/17 12:20 Dose: 0.4 mg Trazodone HCl (Trazodone) 100 mg PO BEDTIME [facility] Last Admin: 04/22/17 20:50 Dose: 100 mg Discontinued Medications Albuterol/Ipratropium (Duoneb 3.0-0.5 Mg/3 Ml) 3 ml NEB ONETIME STA Stop: 04/21/17 20:55 Last Admin: 04/21/17 21:32 Dose: 3 ml Methylprednisolone Sodium Succinate (Solu-Medrol) 125 mg IVPUSH ONETIME STA Stop: 04/21/17 20:55 Last Admin: 04/21/17 21:41 Dose: 125 mg Methylprednisolone Sodium Succinate (Solu-Medrol) 125 mg IVPUSH Q8H [facility] Last Admin: 04/22/17 01:09 Dose: Not Given Sodium Polystyrene Sulfonate (Kayexalate) 15 gm PO ONETIME ONE Stop: 04/23/17 08:44 *Q Meaningful Use (DIS) - VTE *Q VTE Criteria *Q: - Stroke *Q Stroke Criteria *Q: - AMI *Q AMI Criteria *Q:
[2017-04-23] MEDS: CHOLECALCIFEROL 2000 UNIT PO SCH (09:30)
[2017-04-23] MEDS: Aspirin 81 MG Tab.EC *PTOM PO SCH (09:31)
[2017-04-23] MEDS: Tamsulosin 0.4 MG Cap.ER *PTOM PO SCH (09:31)
[2017-04-23] MEDS: [UNRECOGNIZED DRUG - OTHER] PO SCH (09:32)
[2017-04-23] MEDS: Cyanocobalamin (Vitamin B12) 1,000 MCG Tab *PTOM PO SCH (09:32)
[2017-04-23] MEDS: Sertraline 100 MG Tab *PTOM PO SCH (09:33)
[2017-04-23 10:00] VITALS: BP 126/58
[2017-04-23] MEDS: Azithromycin 500 MG in Sodium Chloride 0.9% 250 ML IV SCH (12:04)
[2017-04-23] MEDS: cefTRIAXone 1,000 MG in Sodium Chloride 0.9% 50 ML IV SCH (12:04)
== END 2017-04-23 11:20 | disposition home health service (06) ==
LOC: FB.ED 20:35 → FB.MS 22:13
PROVIDERS: ADMIT Emergency Medicine; ATTEND Family Medicine
DX: J18.9 Pneumonia, unspecified organism (principal); E87.5 Hyperkalemia; J44.1 Chronic obstructive pulmonary disease with (acute) exacerbation; E66.9 Obesity, unspecified; I25.10 Atherosclerotic heart disease of native coronary artery without angina pectoris; E03.9 Hypothyroidism, unspecified; G70.00 Myasthenia gravis without (acute) exacerbation; I13.0 Hypertensive heart and chronic kidney disease with heart failure and stage 1 through stage 4 chronic kidney disease, or unspecified chronic kidney disease; N18.4 Chronic kidney disease, stage 4 (severe); D63.8 Anemia in other chronic diseases classified elsewhere; I50.30 Unspecified diastolic (congestive) heart failure; H91.90 Unspecified hearing loss, unspecified ear; E21.3 Hyperparathyroidism, unspecified; E78.2 Mixed hyperlipidemia; F33.9 Major depressive disorder, recurrent, unspecified; F51.01 Primary insomnia; E55.9 Vitamin D deficiency, unspecified; Z79.82 Long term (current) use of aspirin; Z79.2 Long term (current) use of antibiotics; Z79.899 Other long term (current) drug therapy; Z88.8 Allergy status to other drugs, medicaments and biological substances; Z68.30 Body mass index [BMI] 30.0-30.9, adult; Z90.49 Acquired absence of other specified parts of digestive tract; Z95.1 Presence of aortocoronary bypass graft; Z98.890 Other specified postprocedural states; Z87.891 Personal history of nicotine dependence
CPT/HCPCS: 36415; 36600; 71020; 80048; 82803; 83880; 84484; 85025; 85610; 93005; 94640; 96365; 96375; 96376; 99285; A9270; G0378; J0456; J0696; J2930; J7050; J7620; 96374; 99223; 99238; 99284

== ENCOUNTER 2017-09-09 01:30 | Emergency (ER) | payer MEDICARE ==
[2017-09-09] MEDS ORDERED: Albuterol/Ipratropium 3.0-0.5 MG/3 ML Neb Soln NEB ONE (02:19)
--- NOTE | 2017-09-09 03:23 | EDM.PDOC ---
ED HPI GENERAL MEDICAL PROBLEM - General Chief Complaint: Respiratory Problem Stated Complaint: SOB Time Seen by Provider: 09/09/17 01:30 Source of Information: Reports: Patient, Family History Limitations: Reports: Physical Impairment - History of Present Illness INITIAL COMMENTS - FREE TEXT/NARRATIVE: 77 years old w m with multiple medical issues came by PC to the ed with his SO due to sob when going in supine position. Pt stated as well, his inhaler does not work. He was on lasix in the past. It was disconnected due to his worsening CRI. Pt is poor historian. No N/V/D or any other acute medical issues. BP 122/ 52, RR 24 pulse ox 98% on RA temp 37.1 Onset: Gradual, Unknown/Unsure Onset Date: 09/07/17 Onset Time: 08:00 Duration: Day(s):, Intermittent Location: Reports: Generalized Quality: Reports: Same as Previous Episode (sob in supine position) Severity: Mild Improves with: Reports: Other (sittung up) Worsens with: Reports: Movement (supine) Context: Reports: Other (pt has copd CRi and CHF) Associated Symptoms: Reports: Shortness of Breath - Related Data Allergies Allergy/AdvReac Type Severity Reaction Status Date / Time No Known Allergies Allergy Verified 09/09/17 01:41 Home Meds: Home Meds Acetaminophen/Diphenhydramine [Tylenol Pm Ex-Strength Caplet] 2 tab PO BEDTIME 04/22/17 [History] Albuterol/Ipratropium [Take Home: Albuterol/Ipratropium, 4 Neb Pack] 1 dose NEB BID 04/22/17 [History] Amitriptyline [Elavil] 25 mg PO BEDTIME 04/22/17 [History] Aspirin [Halfprin] 81 mg PO DAILY 04/22/17 [History] Cholecalciferol (Vitamin D3) [Vitamin D3] 2,000 unit PO DAILY 04/22/17 [History] Cyanocobalamin (Vitamin B-12) [Vitamin B-12] 1,000 mcg PO DAILY 04/22/17 [ History] Latanoprost 1 drop EYEBOTH BEDTIME 04/22/17 [History] Levothyroxine [Synthroid] 50 mcg PO DAILY 04/22/17 [History] Multivitamin with Minerals [Multivitamins with Minerals] 1 tab PO DAILY [History] Sertraline [Zoloft] 50 mg PO DAILY 04/22/17 [History] Tamsulosin [Flomax] 0.4 mg PO DAILY 04/22/17 [History] traZODone 100 mg PO BEDTIME 04/22/17 [History] Tiotropium [Spiriva HandiHaler] 18 mcg DAILY PRN 09/09/17 [History] Past Medical History HEENT History: Reports: Glaucoma, Hard of Hearing Other HEENT History: myasthenia gravis Cardiovascular History: Reports: Arrhythmia, Bypass, Heart Failure, SOB on Exertion, Other (See Below) Other Cardiovascular History: sinus bradycardia Respiratory History: Reports: COPD, SOB Gastrointestinal History: Reports: Bowel Obstruction, PUD, Other (See Below) Other Gastrointestinal History: perfoated ulcer in past Genitourinary History: Reports: Renal Disease Other Genitourinary History: stage 4 RF Musculoskeletal History: Reports: Arthritis, Other (See Below) Other Musculoskeletal History: myasthenia gravis in remission, hx fx L wrist Neurological History: Reports: Seizure, Other (See Below) Other Neuro History: myasthenia gravis in remission Psychiatric History: Reports: Addiction, Other (See Below) Other Psychiatric History: Hx ETOH abuse Endocrine/Metabolic History: Reports: Hypothyroidism, Obesity/BMI 30+ Hematologic History: Reports: B12 Deficiency, Blood Transfusion(s), Sickle Cell Anemia Immunologic History: Reports: Other (See Below) Other Immunologic History: on past medications Oncologic (Cancer) History: Reports: Non-Hodgkin's Lymphoma Other Oncologic History: had had chemo & radiation for non-Hodgkin's lymphoma Dermatologic History: Reports: Melanoma, Other (See Below) Other Dermatologic History: noted dark patchy area to right frontal lobe approx 6cm size-without pain - Infectious Disease History Infectious Disease History: Reports: Chicken Pox, Mumps - Past Surgical History HEENT Surgical History: Reports: Cataract Surgery Other HEENT Surgeries/Procedures: bilat cataract surg, Cardiovascular Surgical History: Reports: Coronary Artery Bypass GI Surgical History: Reports: Appendectomy, Colonoscopy, EGD, Other (See Below) Other GI Surgeries/Procedures: perforated bowel about 17 years ago Musculoskeletal Surgical History: Reports: ORIF, Other (See Below) Other Musculoskeletal Surgeries/Procedures:: generalized aching all over with flare up, L wrist surgery Dermatological Surgical History: Reports: None Social & Family History - Family History Family Medical History: Noncontributory Cardiac: Reports: Bypass Respiratory: Reports: COPD Musculoskeletal: Reports: Arthritis Endocrine/Metabolic: Reports: Diabetes, Type I Hematologic: Reports: B12 Deficiency, Sickle Cell Anemia - Tobacco Use Smoking Status *Q: Former Smoker Years of Tobacco use: 25 Used Tobacco, but Quit: Yes Month Tobacco Last Used: 25 years ago Second Hand Smoke Exposure: No - Caffeine Use Caffeine Use: Reports: Coffee - Recreational Drug Use Recreational Drug Use: No ED ROS GENERAL - Review of Systems Review Of Systems: See Below Constitutional: Reports: No Symptoms HEENT: Reports: No Symptoms Respiratory: Reports: Shortness of Breath Cardiovascular: Reports: No Symptoms Endocrine: Reports: No Symptoms GI/Abdominal: Reports: No Symptoms : Reports: No Symptoms Musculoskeletal: Reports: No Symptoms Skin: Reports: No Symptoms Neurological: Reports: No Symptoms Psychiatric: Reports: No Symptoms Hematologic/Lymphatic: Reports: No Symptoms Immunologic: Reports: No Symptoms ED EXAM, GENERAL - Physical Exam Exam: See Below Exam Limited By: Physical Impairment General Appearance: Alert, WD/WN, Mild Distress Eye Exam: Bilateral Eye: Normal Inspection Ears: Normal External Exam Ear Exam: Bilateral Ear: Auricle Normal Nose: Normal Inspection Throat/Mouth: Normal Inspection Head: Atraumatic, Normocephalic Neck: Normal Inspection Respiratory/Chest: Decreased Breath Sounds, Crackles (minor) Cardiovascular: Normal Peripheral Pulses, Regular Rate, Rhythm, Other (chronic ankle edema, can not take lasix due to CRIas per SO) GI/Abdominal: Normal Bowel Sounds, Soft, Non-Tender, No Organomegaly (Male) Exam: Deferred Rectal (Males) Exam: Deferred Back Exam: Normal Inspection, Full Range of Motion Extremities: Pedal Edema (chronic) Neurological: Alert, Oriented, CN II-XII Intact, Abnormal Gait (due to chronic weakness) Psychiatric: Normal Affect, Normal Mood Skin Exam: Warm, Dry, Intact Lymphatic: No Adenopathy Course - Vital Signs Text/Narrative:: 77 years old w m with multiple medical issues came by PC to the ed with his SO due to sob when going in supine position. Pt stated as well, his inhaler does not work. He was on lasix in the past. It was disconnected due to his worsening CRI. Pt is poor historian. No N/V/D or any other acute medical issues. BP 122/ 52, RR 24 pulse ox 98% on RA temp 37.1 PE: weak appearing 77 y.o.w.m. NAD with poor insp effort, mild wheezes Lanb: Prop BNP elevated, no change from prev lab. CR 2.7 (3.1) Impression: Asthma, copd, CHF, CRI Tx: Duoneb Reexam: Improved Plan: Pt staed he is doing better and wanted to go home. Pt was discharged with instructions. Last Recorded V/S: Last Vital Signs Temp 37.1 C 09/09/17 01:30 Pulse 63 09/09/17 01:30 Resp 20 09/09/17 03:10 BP 122/63 09/09/17 03:10 Pulse Ox 100 09/09/17 03:10 - Orders/Labs/Meds Orders: Active Orders 24 hr Category Date Time Status RT Aerosol Therapy [RC] ASDIRECTED Care 09/09/17 02:19 Active CXR [Chest 2V] [CR] Stat Exams 09/09/17 02:18 Taken Labs: Laboratory Tests 09/09/17 09/09/17 Range/Units 01:50 01:50 WBC 8.0 (4.5-12.0) X10-3/uL RBC 2.89 L (4.30-5.75) x10(6)uL Hgb 11.5 (11.5-15.5) g/dL Hct 32.9 (30.0-51.3) % MCV 113.8 H (80-96) fL MCH 39.8 H (27.7-33.6) pg MCHC 35.0 (32.2-35.4) g/dL RDW 18.2 H (11.5-15.5) % Plt Count 223 (125-369) X10(3)uL MPV 9.0 (7.4-10.4) fL Add Manual Diff Yes Neutrophils % (Manual) 70 (46-82) % Band Neutrophils % 1 (0-6) % Lymphocytes % (Manual) 22 (13-37) % Monocytes % (Manual) 7 (4-12) % Anisocytosis Few Macrocytosis Moderate H Sodium 129 L (135-145) mmol/L Potassium 4.4 D (3.5-5.3) mmol/L Chloride 104 D (100-110) mmol/L Carbon Dioxide 17 L (23-29) mmol/L BUN 13 D (8-23) mg/dL Creatinine 2.7 H* (0.6-1.3) mg/dL Est Cr Clr Drug Dosing 20.74 mL/min Estimated GFR (MDRD) 23 L (>60) BUN/Creatinine Ratio 4.8 L (9-20) Glucose 138 H (80-116) mg/dL Calcium 8.2 L (8.6-10.2) mg/dL NT-Pro-B Natriuret Pep [id number] H (5-450) pg/mL Meds: Medications Discontinued Medications Generic Name Dose Route Start Last Admin Trade Name Freq PRN Reason Stop Dose Admin Albuterol/Ipratropium 3 ml 09/09/17 02:19 09/09/17 02:35 Duoneb 3.0-0.5 Mg/3 Ml NEB 09/09/17 02:20 3 ml ONETIME ONE Administration Departure - Departure Time of Disposition: 03:23 Disposition: Home, Self-Care 01 Condition: Good Clinical Impression: Elevated brain natriuretic peptide (BNP) level COPD (chronic obstructive pulmonary disease) Qualifiers: COPD type: COPD with acute exacerbation Qualified Code(s): J44.1 - Chronic obstructive pulmonary disease with (acute) exacerbation CRI (chronic renal insufficiency) Qualifiers: Chronic kidney disease stage: stage 3 (moderate) Qualified Code(s): N18.3 - Chronic kidney disease, stage 3 (moderate) - Discharge Information Instructions: Chronic Obstructive Pulmonary Disease, [id number] Referrals: Marely Waldron, [facility] [Primary Care Provider] - Forms: ED Department Discharge Additional Instructions: Please continue your current medications, please follow up with your MD next week at clinic for recheck, come back if your symptoms get worse acutely. May take nebulizer Duonebs every 4 hours while awake for next couple days, & if improving, may go back to twice a day. - My Orders Last 24 Hours: My Active Orders 09/09/17 02:18 CXR [Chest 2V] [CR] Stat 09/09/17 02:19 RT Aerosol Therapy [RC] ASDIRECTED - Assessment/Plan Last 24 Hours: My Active Orders 09/09/17 02:18 CXR [Chest 2V] [CR] Stat 09/09/17 02:19 RT Aerosol Therapy [RC] ASDIRECTED
[2017-09-09 04:15] VITALS: BP 122/63
--- NOTE | 2017-09-10 10:47 | CR ---
INDICATION: Short of breath, history of lymph node cancer in 1970, previous smoker for 40 years, quit approximately 30 years ago. CHEST: PA and lateral views of the chest 09/09/2017 were compared with 2016 and 08/27/2011 and revealed increased flattening of diaphragm leaves, compatible with progressive COPD and/or exacerbation of COPD. Blunting of the posterior sulci is present, which may be related to scarring or possibly minimal pleural effusions. Somewhat heavy markings are again noted in the lower lung alcala, making it difficult to exclude minimal patchy bronchopneumonia and pleuritis with the blunted posterior sulci. However, no gross consolidating pneumonia or significant sized effusion was identified. Port-A-Cath is again noted, unchanged in position. The heart appeared slightly enlarged with previous median sternotomy. Bridging hyperostotic changes are noted in the mid to lower thoracic spine. IMPRESSION: 1. Progression of and/or exacerbation of COPD. 2. Cannot exclude minimal patchy bronchopneumonia and pleuritis. 3. ASHD, cardiomegaly, and post median sternotomy. 4. Port-A-Cath unchanged in position. 5. DJD spine. MTDD
== END 2017-09-09 03:36 | disposition home or self-care (01) ==
LOC: FB.ED 01:30
DX: J44.1 Chronic obstructive pulmonary disease with (acute) exacerbation (principal); N18.3 Chronic kidney disease, stage 3 (moderate); I50.9 Heart failure, unspecified; R79.89 Other specified abnormal findings of blood chemistry; E03.9 Hypothyroidism, unspecified; E66.9 Obesity, unspecified; Z79.899 Other long term (current) drug therapy; Z87.891 Personal history of nicotine dependence
CPT/HCPCS: 36415; 71020; 80048; 83880; 85025; 94640; 99285; J7620; 99284

== ENCOUNTER 2017-10-01 14:30 | Observation (INO) | payer MEDICARE ==
[2017-10-01] MEDS: Lactated Ringers 1,000 ML IV SCH ×2 (15:31→23:51)
--- NOTE | 2017-10-01 16:37 | EDM.PDOC ---
ED HPI GENERAL MEDICAL PROBLEM - General Chief Complaint: General Stated Complaint: KIDNEY FAILURE Time Seen by Provider: 10/01/17 14:35 Source of Information: Reports: Patient, Family, Other ([facility].) History Limitations: Reports: No Limitations - History of Present Illness INITIAL COMMENTS - FREE TEXT/NARRATIVE: Patient is a 77 year old man who is a patient of [facility]. He was seen by a Nurse Practitioner this afternoon and was sent for an ultrasound and labs. He was supposed to come back to see her but he and his misunderstood and came back to [place]. They were in [place] when the [facility] called to let them know that he wanted to admit him for pre renal kidney failure on chronic kidney failure. His creatinine had gone up to over 4 and his Glomerular Filtration Rate was only at 12. He needs gentle hydration and that will improve these numbers. If he does not get better he will need to be transfered by to [facility]. He is tired and has no appetite and he is drinking but less quantity of fluids. He has no pain. Onset: Gradual Onset Date: 09/27/17 Onset Time: 06:00 Duration: Day(s): (5 or more days of feeling more tired and ill.) Location: Reports: Generalized Quality: Reports: Other (Tired and loss of appetite.) Severity: Moderate Improves with: Reports: None Worsens with: Reports: None Context: Reports: Other (CKD) Associated Symptoms: Reports: No Other Symptoms - Related Data Allergies Allergy/AdvReac Type Severity Reaction Status Date / Time No Known Allergies Allergy Verified 09/09/17 01:41 Home Meds: Home Meds Aspirin [Halfprin] 81 mg PO DAILY 04/22/17 [History] Cyanocobalamin (Vitamin B-12) [Vitamin B-12] 1,000 mcg PO DAILY 04/22/17 [ History] Latanoprost 1 drop EYEBOTH BEDTIME 04/22/17 [History] Levothyroxine [Synthroid] 50 mcg PO DAILY 04/22/17 [History] Multivitamin with Minerals [Multivitamins with Minerals] 1 tab PO DAILY [History] Sertraline [Zoloft] 50 mg PO DAILY 04/22/17 [History] Tamsulosin [Flomax] 0.4 mg PO DAILY 04/22/17 [History] Tiotropium [Spiriva HandiHaler] 18 mcg DAILY PRN 09/09/17 [History] Albuterol/Ipratropium [DuoNeb 3.0-0.5 MG/3 ML] 3 ml IH QID PRN 10/01/17 [History ] Ascorbate Calcium [Vitamin C] 500 mg PO DAILY 10/01/17 [History] Cholecalciferol (Vitamin D3) [Vitamin D3] 2,000 unit PO DAILY 10/01/17 [History] Mirtazapine [Mirtazapine] 15 mg PO BEDTIME 10/01/17 [History] Sodium Bicarbonate 650 mg PO BID 10/01/17 [History] Past Medical History HEENT History: Reports: Glaucoma, Hard of Hearing Other HEENT History: myasthenia gravis Cardiovascular History: Reports: Arrhythmia, Bypass, Heart Failure, SOB on Exertion, Other (See Below) Other Cardiovascular History: sinus bradycardia Respiratory History: Reports: COPD, SOB Gastrointestinal History: Reports: Bowel Obstruction, PUD, Other (See Below) Other Gastrointestinal History: perfoated ulcer in past Genitourinary History: Reports: Renal Disease Other Genitourinary History: stage 4 RF Musculoskeletal History: Reports: Arthritis, Other (See Below) Other Musculoskeletal History: myasthenia gravis in remission, hx fx L wrist Neurological History: Reports: Seizure, Other (See Below) Other Neuro History: myasthenia gravis in remission Psychiatric History: Reports: Addiction, Other (See Below) Other Psychiatric History: Hx ETOH abuse Endocrine/Metabolic History: Reports: Hypothyroidism, Obesity/BMI 30+ Hematologic History: Reports: B12 Deficiency, Blood Transfusion(s), Sickle Cell Anemia Immunologic History: Reports: Other (See Below) Other Immunologic History: on past medications Oncologic (Cancer) History: Reports: Non-Hodgkin's Lymphoma Other Oncologic History: had had chemo & radiation for non-Hodgkin's lymphoma Dermatologic History: Reports: Melanoma, Other (See Below) Other Dermatologic History: noted dark patchy area to right frontal lobe approx 6cm size-without pain - Infectious Disease History Infectious Disease History: Reports: Chicken Pox, Mumps - Past Surgical History HEENT Surgical History: Reports: Cataract Surgery Other HEENT Surgeries/Procedures: bilat cataract surg, Cardiovascular Surgical History: Reports: Coronary Artery Bypass GI Surgical History: Reports: Appendectomy, Colonoscopy, EGD, Other (See Below) Other GI Surgeries/Procedures: perforated bowel about 17 years ago Musculoskeletal Surgical History: Reports: ORIF, Other (See Below) Other Musculoskeletal Surgeries/Procedures:: generalized aching all over with flare up, L wrist surgery Dermatological Surgical History: Reports: None Social & Family History - Family History Family Medical History: Noncontributory Cardiac: Reports: Bypass Respiratory: Reports: COPD Musculoskeletal: Reports: Arthritis Endocrine/Metabolic: Reports: Diabetes, Type I Hematologic: Reports: B12 Deficiency, Sickle Cell Anemia - Tobacco Use Smoking Status *Q: Former Smoker Years of Tobacco use: 25 Used Tobacco, but Quit: Yes Month Tobacco Last Used: 10/1996 Second Hand Smoke Exposure: No - Caffeine Use Caffeine Use: Reports: None - Recreational Drug Use Recreational Drug Use: No ED ROS GENERAL - Review of Systems Review Of Systems: See Below Constitutional: Reports: Malaise, Decreased Appetite HEENT: Reports: No Symptoms Respiratory: Reports: No Symptoms Cardiovascular: Reports: No Symptoms Endocrine: Reports: No Symptoms GI/Abdominal: Reports: Anorexia, Decreased Appetite : Reports: No Symptoms Musculoskeletal: Reports: No Symptoms Skin: Reports: No Symptoms Neurological: Reports: No Symptoms Psychiatric: Reports: No Symptoms Hematologic/Lymphatic: Reports: No Symptoms Immunologic: Reports: No Symptoms ED EXAM, RENAL/ - Physical Exam Exam: See Below Exam Limited By: No Limitations General Appearance: Alert, WD/WN, No Apparent Distress Eye Exam: Bilateral Eye: EOMI, Normal Fundi, Normal Inspection Ears: Normal External Exam, Normal Canal, Hearing Grossly Normal, Normal TMs Nose: Normal Inspection, Normal Mucosa, No Blood Throat/Mouth: Normal Inspection, Normal Lips, Normal Teeth, Normal Gums, Normal Oropharynx, Normal Voice, No Airway Compromise Head: Atraumatic, Normocephalic Neck: Normal Inspection, Supple, Non-Tender, Full Range of Motion Respiratory/Chest: No Respiratory Distress, Lungs Clear, Normal Breath Sounds, No Accessory Muscle Use, Chest Non-Tender Cardiovascular: Normal Peripheral Pulses, Regular Rate, Rhythm, No Edema, No Gallop, No JVD, No Murmur, No Rub GI/Abdominal: Normal Bowel Sounds, Soft, Non-Tender, No Organomegaly, No Distention, No Abnormal Bruit, No Mass Extremities: Normal Inspection Neurological: Alert, Oriented, CN II-XII Intact, Normal Cognition, Normal Gait, Normal Reflexes, No Motor/Sensory Deficits Psychiatric: Normal Affect, Normal Mood Skin Exam: Warm, Dry, Intact, Normal Color, No Rash Lymphatic: No Adenopathy Course - Vital Signs Text/Narrative:: Uneventful ED course. Discussed case with [facility] and they gave advice for hospitalization. Dr. Burks was gracious enough to take the patient for admission and inpatient management. Last Recorded V/S: Last Vital Signs Temp 36.2 C 10/01/17 14:30 Pulse 94 10/01/17 14:30 Resp 18 10/01/17 14:30 BP 100/66 10/01/17 14:30 Pulse Ox 100 10/01/17 14:30 - Orders/Labs/Meds Orders: Active Orders 24 hr Category Date Time Status Lactated Ringers [Ringers, Lactated] 1,000 ml Med 10/01/17 15:00 Active IV ASDIRECTED Medication Orders Lactated Ringer's (Ringers, Lactated) 1,000 mls @ 125 mls/hr IV ASDIRECTED MAURICE Last Admin: 10/01/17 15:31 Dose: 125 mls/hr Meds: Medications Generic Name Dose Route Start Last Admin Trade Name Freq PRN Reason Stop Dose Admin Lactated Ringer's 1,000 mls @ 125 mls/hr 10/01/17 15:00 10/01/17 15:31 Ringers, Lactated IV 125 mls/hr ASDIRECTED MAURICE Administration Departure - Departure Time of Disposition: 17:06 Disposition: Left Without Being Seen 07 Condition: Fair Clinical Impression: CKD (chronic kidney disease) stage 5, GFR less than 15 ml/min CKD (chronic kidney disease) Qualifiers: Chronic kidney disease stage: stage 4 (severe) Qualified Code(s): N18.4 - Chronic kidney disease, stage 4 (severe) - Discharge Information - My Orders Last 24 Hours: My Active Orders 10/01/17 15:00 Lactated Ringers [Ringers, Lactated] 1,000 ml IV ASDIRECTED - Assessment/Plan Last 24 Hours: My Active Orders 10/01/17 15:00 Lactated Ringers [Ringers, Lactated] 1,000 ml IV ASDIRECTED
[2017-10-01] MEDS ORDERED: Mirtazapine 15 MG Tab **OWN MED PO SCH (22:11)
[2017-10-01] MEDS ORDERED: Albuterol/Ipratropium 3.0-0.5 MG/3 ML Neb Soln INH SCH (22:12)
[2017-10-01] MEDS ORDERED: LATANOPROST EYEBOTH SCH (22:15)
[2017-10-02] MEDS ORDERED: Acetaminophen 325 MG Tab PO PRN (03:20)
[2017-10-02] MEDS: Lactated Ringers 1,000 ML IV SCH (08:33)
[2017-10-02 12:30] VITALS: BP 97/62
--- NOTE | 2017-10-03 01:01 | DISCH ---
DISCHARGE DATE: 10/02/2017 HOSPITAL COURSE: Contreras Garcia is a 77-year-old male, admitted with what is suspected to be prerenal azotemia. Previous underlying chronic renal disease, origin unknown. Provider's record, [facility]. Encouraged overnight hydration with fluids, was given IV lactated Ringer's at 125 mL/hour overnight. In spite of hydration, BUN yu from 55-66, creatinine 4.63-5.1, GFR fell from 13-11. I spoke with Dr. Bijan Cordova, hospitalist at [facility] agreed to accept the patient in transfer. Ambulance will be provided due to lack of transportation. SURGICAL PROCEDURES: None. CONSULTATIONS: None. /[id number] ELIZABETH/MODESTA
--- NOTE | 2017-10-04 09:53 | HP ---
ADMISSION DATE: 10/01/2017 REASON FOR VISIT: Worsening renal failure. HISTORY OF PRESENT ILLNESS: Osmani Garcia is a 77-year-old male, admitted through the ER. Had been up at [facility] earlier today for ongoing evaluation of chronic renal failure. Ultrasound labs were performed, was supposed to come back to be seen, but left, coming back to [place]. They were informed by the neurologist that admission for prerenal failure was felt to be present. Creatinine had risen markedly, by report had been less than 3 and now 4.63, BUN 55, GFR 12. Ultrasound noting no focal abnormalities, renal cortical thickening. Etiology of renal failure uncertain on my behalf. Tired, fatigable, is drinking less quantity of fluids. Admission to the hospital was indicated for hydration overnight. ALLERGIES: No medication, environmental, or latex allergies. PAST MEDICAL HISTORY: Difficult to ascertain. He has had Coronary bypass surgery, he has had a laparotomy, a complicated wound healing, cholecystectomy suspected, uncertain about hernia. Had a complicated left wrist fracture with surgery. No other operative procedures, hospitalizations, unusual childhood diseases, major injuries, or fractures. Present medications suggest BPH, mood disorder, hypothyroidism. MEDS: Please see medication reconciliation list. SOCIAL HISTORY: Retired, worked at [employer], 72, good health, 3 children. Quit smoking about 30 years ago. Nil alcohol consumption. FAMILY HISTORY: Unhelpful. REVIEW OF SYSTEMS: Please see HPI. Fatigable, tired. Bowels has been fine, less reduced urine, no skin rash or joint pain. PHYSICAL EXAMINATION: VITAL SIGNS: Stable. 1.73 meters is the height, weight 100.698 kg, temperature 36.3, pulse 95, blood pressure 100/66 to 83/52, respirations 18 and 22 is the respiration, O2 saturations 93% on room air. GENERAL: A bit disgruntled, incredibly cold by report. Voice is raspy. HEENT: Funduscopic exam difficult. Conjunctivae clear. Clear nasal discharge. Mouth and oropharynx clear. Poor dentition. Decreased hearing. NECK: Benign. No JVD. CHEST: Decreased breath sounds. Coarse sounds throughout. HEART: Distant heart sounds with occasional ectopy. ABDOMEN: Complicated vertical incision with delayed healing and marked deformity. No palpable masses. AND RECTAL: Deferred. EXTREMITIES: Well perfused. Venous stasis changes. LABORATORY STUDIES: As above. ASSESSMENT: Acute renal failure probably likely prerenal. PLAN: IV fluids today, really no medications that should be complicating this process. Intervention and care. Close observation. We will recheck sugars tomorrow. /[id number] ELIZABETH/MODESTA
== END 2017-10-02 13:08 ==
LOC: FB.ED 14:30 → INTOOBSV 15:33 → FB.MS 15:33
PROVIDERS: ADMIT Family Medicine; ATTEND Family Medicine
DX: N18.9 Chronic kidney disease, unspecified (principal); J44.9 Chronic obstructive pulmonary disease, unspecified; E03.9 Hypothyroidism, unspecified; E66.9 Obesity, unspecified; E53.8 Deficiency of other specified B group vitamins; Z68.30 Body mass index [BMI] 30.0-30.9, adult; Z90.49 Acquired absence of other specified parts of digestive tract; Z95.1 Presence of aortocoronary bypass graft; Z87.891 Personal history of nicotine dependence; Z79.82 Long term (current) use of aspirin; Z79.899 Other long term (current) drug therapy
CPT/HCPCS: 36415; 80048; 83735; 84100; 85027; 96360; 96361; 99284; A9270; G0378; J7120; J7620; 99285